=== PATIENT | male | born 1995 | race Caucasian/White ===

== ENCOUNTER → 2020-09-09 12:17 | Outpatient (CLI) | payer OTHER, SELFPAY ==
[2020-09-09] MEDS: COVID-19 VACC #1, MRNA(MOD) 100 MCG/0.5 ML VIAL IM (12:23)
== END ==
PROVIDERS: Visit Provider Internal Medicine
DX: Z23 Encounter for immunization (principal)
CPT/HCPCS: 0011A; 91301